=== PATIENT | male | born 1970 | race Caucasian/White ===

== ENCOUNTER 2022-05-09 09:11 | Outpatient (CLI) | payer OTHER, SELFPAY ==
--- NOTE | 2022-05-09 09:15 | CRLHL7_ITS ---
For Patients: As a result of the Century Cures Act, medical imaging exams and procedure reports are released immediately into your electronic medical record. You may view this report before your referring provider. If you have questions, please contact your health care provider. Indication: Back pain with radiculopathy. Technique: Multiplanar, multisequence MRI of the lumbar spine was performed without intravenous contrast. Comparison: Lumbar spine radiographs 04/25/2022. Findings: Lumbosacral transitional anatomy. Transitional segment is labeled as S1, with rudimentary S1-2 disc space. The vertebral body heights appear maintained without evidence of fracture. No discrete T1 hypointense marrow infiltrating process. Hemangioma within the L5 vertebral body. The conus medullaris terminates at L1-2, normal. Cauda equina appears unremarkable. T12-L1: No spinal canal or neural foraminal stenosis. L1-2: No spinal canal or neural foraminal stenosis. L2-3: No spinal canal or neural foraminal stenosis. L3-4: No spinal canal or neural foraminal stenosis. L4-5: No spinal canal or neural foraminal stenosis. Mild facet arthropathy. L5-S1: Mild disc height loss and desiccation. Disc bulge with mild lateral recess narrowing, abutting the descending S1 nerves. Mild neural foraminal narrowing. Mild to moderate facet arthropathy. Mild sacroiliac joint osteoarthritis. Impression: 1. Lumbosacral transitional anatomy. Transitional segment is labeled as S1, with rudimentary S1-2 disc space. Careful clinical correlation and radiographic localization is recommended prior to any planned surgical intervention. 2. At L5-S1, mild lateral recess narrowing with abutment of the descending S1 nerves. Mild neural foraminal narrowing. Dictated by Joe Min MD @ 05/09/2022 10:00:49 AM (Electronically Signed)
== END 2022-05-09 09:12 | disposition home or self-care (01) ==
LOC: MRI 09:11
PROVIDERS: PCP Family Medicine; Visit Provider Family Medicine
DX: M54.50 Low back pain, unspecified (principal); M51.27 Other intervertebral disc displacement, lumbosacral region; M79.604 Pain in right leg
CPT/HCPCS: 72148

== ENCOUNTER 2023-04-24 10:50 | Outpatient (CLI) | payer OTHER, SELFPAY | END 2023-04-24 10:51 | disposition home or self-care (01) | PROVIDERS: PCP Family Medicine; Visit Provider Family Medicine | DX: Z12.5 Encounter for screening for malignant neoplasm of prostate (principal); E78.00 Pure hypercholesterolemia, unspecified; Z79.899 Other long term (current) drug therapy | CPT/HCPCS: 80053; 80061; G0103 ==

== ENCOUNTER 2024-07-16 09:05 | Outpatient (CLI) | payer OTHER, SELFPAY | END 2024-07-16 09:06 | disposition home or self-care (01) | LOC: NFLDREF 07-18 14:55 | PROVIDERS: PCP Family Medicine; Referring Provider Family Medicine; Visit Provider Family Medicine | DX: Z00.00 Encounter for general adult medical examination without abnormal findings (principal); E78.00 Pure hypercholesterolemia, unspecified; R03.0 Elevated blood-pressure reading, without diagnosis of hypertension; M54.50 Low back pain, unspecified; M79.604 Pain in right leg; Z12.5 Encounter for screening for malignant neoplasm of prostate | CPT/HCPCS: 80053; 80061; G0103 ==